=== PATIENT | male | born 1955 | race African-American/Black ===

== ENCOUNTER 2022-06-29 13:26 | Outpatient (CLI) | payer MEDICARE, SELFPAY ==
--- NOTE | ~2022-06-29 | MR_ITS ---
EXAMINATION: MR lumbar spine wo con DATE: 06/29/2022 14:14 INDICATION: Lumbago with right-sided sciatica. TECHNIQUE: Magnetic resonance imaging (MRI) of the lumbar spine was performed without intravenous con trast. Sequences included sagittal T2-weighted FSE, sagittal T2-weighted FS FSE, sagittal T1-weighted FSE, and axial T2-weighted FSE. COMPARISON: Lumbar spine radiograph 10/21/2018 FINDINGS: There is 5 degrees levocurvature of lumbar spine. Vertebral body heights are normal. There is mildly decreased disc height at L3-L4 and severely decreased disc height at L4-L5 and L5-S1 with e ndplate remodeling. The distal spinal cord signal intensity is normal. The conus medullaris is at L1- L2. Epidural lipomatosis is noted. The following disc levels are specifically discussed: L1-L2: The disc does not extend beyond the endplate margin. There is severe bilateral facet joint ost eoarthritis. There is mild bilateral neural foraminal stenosis. There is no central canal stenosis. L2-L3: The disc does not extend beyond the endplate margin. There is severe bilateral facet joint ost eoarthritis. There is no neural foraminal stenosis. There is no central canal stenosis. L3-L4: The disc is bulging and has an annular fissure. There is severe bilateral facet joint osteoart hritis. There is moderate bilateral neural foraminal stenosis. There is mild central canal stenosis. L4-L5: The disc is bulging with superimposed central extrusion. There is severe bilateral facet joint osteoarthritis. There is moderate bilateral neural foraminal stenosis. There is mild central canal s tenosis. L5-S1: This is bulging and has an annular fissure. There is severe bilateral facet joint osteoarthrit is. There is moderate bilateral neural foraminal stenosis. There is mild central canal stenosis. IMPRESSION: 1. Severe lumbar spondylosis. Reviewed, dictated and finalized at location A.
== END 2022-06-29 13:27 | disposition home or self-care (01) ==
PROVIDERS: PCP Emergency Medicine; Visit Provider Emergency Medicine
DX: M54.41 Lumbago with sciatica, right side (principal); M47.896 Other spondylosis, lumbar region
CPT/HCPCS: 72148

== ENCOUNTER 2024-04-03 13:46 | Inpatient (IN) | payer MEDICARE, MEDICAID, SELFPAY ==
[2024-04-03] VITALS (7 sets, daily range): BP systolic 71–117; BP diastolic 44–58; PULSE 79–118; RESP 16–20; TEMP 36–36.8; O2SAT 98–100; BMI 24.6
--- NOTE | ~2024-04-03 | CT_ITS ---
CT chest abdomen pelvis wo con Ordering provider: Lola Mcnair APRN History: . nausea, vomiting, diarrhea, acute renal failure . Comparison: None. Technique: CT abdomen without IV and without oral contrast. Radiation reduction technique utilized. D LP is 360.69 mGy. Findings: VISUALIZED LOWER CHEST: Normal. UPPER ABDOMINAL ORGANS: Liver: Normal. Gallbladder: Normal. Spleen: Normal. Stomach/duodenum: Normal. Pancreas: Normal. Adrenals: Calcified nodule in the left adrenal is noted. Slightly prominent right adrenal. Kidneys: Small cyst in the right kidney upper pole. VISUALIZED BOWEL AND MESENTERY: No evidence of diverticulitis. No evidence of appendicitis. The bowel is otherwise normal. No free air or free fluid. No mesenteric lymphadenopathy. RETROPERITONEUM: Mild atheromatous disease of the abdominal aorta. No retroperitoneal lymphadenopathy . MUSCULOSKELETAL: The superficial soft tissues are normal. Age appropriate degenerative changes of the spine. Left sacroiliitis with fusion IMPRESSION: No evidence of appendicitis, diverticulitis or intestinal obstruction. No renal stones. Slightly prominent right adrenal gland with possible calcified adenoma in the left side. Reviewed, dictated and finalized at location A. IMPRESSION: No evidence of appendicitis, diverticulitis or intestinal obstruction. No renal stones. Slightly prominent right adrenal gland with possible calcified adenoma in the l eft side.
--- NOTE | ~2024-04-03 | XR_ITS ---
EXAMINATION: XR chest 2V DATE: 04/03/2024 14:15 INDICATION: Weakness. Shortness of breath. TECHNIQUE: Frontal and lateral views of the chest were obtained on 3 radiographs. COMPARISON: None. FINDINGS: There are airspace opacities in right upper lobe. No pleural effusion or pneumothorax. The heart size is normal. IMPRESSION: 1. Airspace opacities in right upper lobe, consistent with pneumonia. Reviewed, dictated and finalized at location A.
--- NOTE | ~2024-04-03 | US_ITS ---
EXAMINATION: US renal BI DATE: 04/05/2024 14:29 INDICATION: Acute kidney injury. TECHNIQUE: Multiple ultrasound grayscale images of the kidneys were obtained. COMPARISON: CT 04/03/2024 FINDINGS: The right kidney measures 9.7 x 5.3 x 5.6 cm. The left kidney measures 9.5 x 5.8 x 5.1 cm. The kidney s demonstrate normal parenchymal echogenicity. There is a 1.7 cm cyst in right kidney. There is no hy dronephrosis. The bladder is normal. IMPRESSION: 1. Normal kidney sizes. No hydronephrosis. Reviewed, dictated and finalized at location E.
--- NOTE | 2024-04-03 13:51 | ECG_ITS ---
Test Date: 2024-04-03 14:26:10 Measurements Intervals [place] Rate: 93 P: 87 MN: 109 QRS: 17 QRSD: 105 T: 96 QT: 393 QTc: 489 Interpretive Statements SINUS RHYTHM WITH SHORT MN INTERVAL CONSIDER PREVIOUS INFERIOR INFARCTION ABNORMAL ECG No previous ECG available for comparison Electronically Signed On 04-03-2024 15:58:41 CDT by Harshad Blackburn M.D.
[2024-04-03 14:34] LABS: Basophils Absolute Auto 0.1 K/mm3 (0.0-0.1); Basophils Percent Auto 0.4 % (0.2-1.2); Eosinophils Absolute Auto 0.3 K/mm3 (0-0.3); Eosinophils Percent Auto 1.9 % (0-4.4); Hematocrit 44.1 % (42.0-52.0); Hemoglobin 15.7 g/dL (14.0-18.0); Immature Granulocyte Absolute 0.06 K/mm3 (0.00-0.031); Immature Granulocyte Percent A 0.4 % (0-0.5); Lymphocytes Absolute Auto 3.05 K/mm3 (0.9-3.2); Lymphocytes Percent Auto 22.1 % (18.3-44.2); Mean Corpuscular HGB Conc 35.6 g/dl (32-36); Mean Corpuscular Hemoglobin 32.2 pg (26-34); Mean Corpuscular Volume 90.4 fl (80-100); Mean Platelet Volume 10.3 fl (7.4-10.4); Monocytes Absolute Auto 0.9 K/mm3 (0.1-0.6); Monocytes Percent Auto 6.7 % (2.6-8.5); Neutrophils Absolute Auto 9.5 K/mm3 (1.3-6.7); Neutrophils Percent Auto 68.5 % (45.5-73.1); Platelet Count Result 257 k/mm3 (150-375); Red Blood Count 4.88 M/mm3 (4.6-6.20); White Blood Count 13.8 K/mm3 (4.5-10.0)
[2024-04-03] MEDS: SODIUM CHLORIDE 0.9% IV 1,000 ML 999 ML IV CONT ×2 (14:36→15:59)
--- NOTE | 2024-04-03 14:37 | PC.NURSE ---
notified MD Flores of patient blood pressure being 70s/50s. fluids started per verbal order at this time.
[2024-04-03 14:53] LABS: Alanine Aminotransferase 34 U/L (6-50); Albumin Level 4.9 g/dL (3.5-5.1); Alkaline Phosphatase 136 U/L (38-126); Anion Gap 25 mmol/L (4-12); Aspartate Amino Transferase 24 U/L (17-59); Bilirubin,Total 0.8 mg/dL (0.2-1.3); Blood Urea Nitrogen 90 mg/dL (9-20); Calcium 8.4 mg/dL (8.4-10.2); Carbon Dioxide 10 mmol/L (22-30); Chloride 98 mmol/L (98-107); Glucose 153 mg/dL (65-110); Potassium 3.5 mmol/L (3.4-5.0); Sodium 133 mmol/L (137-145)
[2024-04-03 15:20] LABS: Estimated CRCL calculation 5 ml/min; Estimated Glomerular Filt Rate 4
--- NOTE | 2024-04-03 15:54 | PC.NURSE ---
Notified MD aleman of patient bp being 78/44. patient otherwise asymptomatic. New orders obtained at this time.
--- NOTE | 2024-04-03 16:08 | ED.GENADULT ---
HPI - General Adult General Chief complaint: Weakness Stated complaint: n/v, balance issues Time Seen by Provider: 04/03/24 15:55 History of Present Illness HPI narrative: 69-year-old male presents to the emergency department for evaluation for dehydration lightheaded dizziness. Patient states over the last few days he has had worsening nausea and vomiting. Patient reports decreased p.o. intake. Patient states he has also had decreased urinary output. Denies any prior history of urinary retention. Patient does have history of hypertension and did take his blood pressure medications this morning. Related Data Home Medications Medication Instructions Recorded Confirmed amlodipine 10 mg tablet 10 mg PO DAILY 08/09/22 04/03/24 irbesartan 150 mg tablet 150 mg PO DAILY 08/09/22 04/03/24 omeprazole 20 mg capsule,delayed 20 mg PO DAILY 08/09/22 04/03/24 release pregabalin 75 mg capsule 75 mg PO Q12H 08/09/22 04/03/24 escitalopram oxalate 10 mg tablet 10 mg PO DAILY 04/03/24 04/03/24 Allergies Allergy/AdvReac Type Severity Reaction Status Date / Time No Known Allergies Allergy Verified 08/09/22 09:50 Review of Systems Review of Systems: All systems reviewed & are unremarkable except as noted in HPI and below PMFSH Past Medical History Medical History (Updated 04/03/24 @ 18:41 by Kalyan Sauceda MD) HTN (hypertension) Social History Social History Years smoked: 2 Smoking status: Current every day smoker Tobacco type: cigars Alcohol intake: current Drinks per week: 6 Substance use: never Substance use type: does not use Do You Feel Safe in your Home?: Yes Lack of Transportation: No Lack of Food: Never True Current Housing: I Have Housing Concerned About Future Housing: No Difficulty Paying Gas/Electric Bills: No Difficulty Paying for Meds: No Currently Unemployed: No Education: Decline to Answer Difficulty w/ Childcare or Family Care: Decline to Answer Living arrangements: with family Spiritual care concerns: No Exam Narrative: APPEARANCE: Well appearing, no pain, no distress, well-nourished. HEAD: normocephalic, atraumatic. EYES: PERRLA/EOMI, conjunctivae clear. NOSE: Normal no drainage EARS:TMS clear with good light reflex. THROAT: Pharynx clear, no exudate. NECK: Supple. No adenopathy, no masses. RESPIRATORY: Airway patent, respirations nonlabored. Clear to auscultation bilaterally, no rales, rhonchi, wheezing. CARDIOVASCULAR: Regular rate and rhythm without murmurs rubs or gallops. ABDOMINAL: Soft, nontender, nondistended, normal bowel sounds MUSCULOSKELETAL: Moves all extremities. Strength/ROM intact, No edema, No calf tenderness. NEURO: Alert. Cranial nerves II through XII intact. Good gait. Good coordination SKIN: Warm, dry. Normal Color Course Course Emergency Course: Patient's blood pressure did improve with rehydration. Patient is being admitted for treatment for his WILLIAM. Nephrology was consulted. Patient was admitted to hospitalist Vital Signs Vital signs: Vital Signs Temperature 97.8 F 04/03/24 13:47 Pulse Rate 118 H 04/03/24 13:47 Respiratory Rate 20 04/03/24 13:47 Blood Pressure 71/44 L 04/03/24 13:47 Pulse Oximetry 98 04/03/24 13:47 Temperature 96.8 F L 04/03/24 18:16 Pulse Rate 88 04/03/24 18:16 Respiratory Rate 18 04/03/24 18:16 Blood Pressure 114/50 L 04/03/24 18:16 Pulse Oximetry 100 04/03/24 18:16 Medical Decision Making MDM Narrative Medical decision making narrative: 69-year-old male presenting to the emergency department for evaluation of lightheaded dizziness and decreased p.o. intake. Patient had a soft nontender abdomen. Patient will was hypotensive but did respond to IV rehydration. Patient is afebrile but does have a leukocytosis of 13.8 a stable hemoglobin 15.7. Patient has an acutely elevated creatinine of 14.4 an elevated BUN of 90. On bedside bladder scan patient had no
--- NOTE | 2024-04-03 17:57 | PM.IMHP ---
H&P: HPI History of Present Illness Date/Time: 04/03/24 17:57 Chief Complaint: Weakness, Diarrhea, Dizziness Narrative: 69 y/o M presents here with multiple medical complaints with PMH of HTN, GERD, and sciatica. The patient presents here from home for further evaluation of dehydration, lightheadedness, dizziness, nausea, vomiting, diarrhea, and decreased appetite. Initially started with diarrhea approximately one week ago. Was having around 5+ BMs per day initially and has decreased in number over the last week, has only had one BM today. Stool described brown and liquid. No BRB or dark tarry stools. No constipation preceding diarrhea. Developed nausea, vomiting, and lack of appetite 3 days ago. Retching did not produce emesis. Last solid food intake was today and small amount yesterday, otherwise did not eat for approximately 4 days. Denies abdominal pain, some mild soreness from heaving . Lightheadedness, dizziness, and weakness started 2 days ago. Dizziness would occur when he would walk to the restroom. Denies night sweats, unintentional weight loss, or easy bruising. Denies any hx of WILLIAM or CKD. Last able to urinate on Sat, has since been able to urinate post-fluids. Initial VS at presentation: 97.8? F, HR 118, RR 20, 71/44, and 98% on RA. ED workup showed: WBC 13.8, sodium 133, creatinine 14.4 and GFR 4 (no previous available for comparison), glucose 153, alk-phos 136, total protein 10.0. CXR showed airspace opacities in the right upper lobe consistent with pneumonia. Review of Systems Review of Systems: All systems reviewed & are unremarkable except as noted in HPI and below PMFSH Past Medical History Medical History GERD (gastroesophageal reflux disease) HTN (hypertension) Sciatica Surgical History Surgical History No history of previous surgery Social History Social History Years smoked: 2 Smoking status: Current every day smoker Tobacco type: cigars Alcohol intake: current Drinks per week: 6 Substance use: never Substance use type: does not use Do You Feel Safe in your Home?: Yes Lack of Transportation: No Lack of Food: Never True Current Housing: I Have Housing Concerned About Future Housing: No Difficulty Paying Gas/Electric Bills: No Difficulty Paying for Meds: No Currently Unemployed: No Education: Decline to Answer Difficulty w/ Childcare or Family Care: Decline to Answer Living arrangements: with family Spiritual care concerns: No Meds Home Medications and Allergies Home Medications Medication Instructions Recorded Confirmed Type amlodipine 10 mg tablet 10 mg PO DAILY 08/09/22 04/03/24 History irbesartan 150 mg tablet 150 mg PO DAILY 08/09/22 04/03/24 History omeprazole 20 mg capsule,delayed 20 mg PO DAILY 08/09/22 04/03/24 History release pregabalin 75 mg capsule 75 mg PO Q12H 08/09/22 04/03/24 History escitalopram oxalate 10 mg tablet 10 mg PO DAILY 04/03/24 04/03/24 History Allergies Allergy/AdvReac Type Severity Reaction Status Date / Time No Known Allergies Allergy Verified 08/09/22 09:50 Vital Signs Vital Signs - 24 hr 04/03/24 13:47 04/03/24 17:25 Temperature 97.8 F Pulse Rate 118 H 92 Respiratory Rate 20 16 Blood Pressure 71/44 L 116/58 L Pulse Oximetry 98 Exam Const: General: comfortable and no acute distress Other: , male, nontoxic appearance HENMT: Face/Nose/Sinus: Normal nares present Other: moist to dry mucosa. poor dentition. Eyes: General: appearance normal, both eyes and all related structures Sclera: sclerae normal Pupils: Equal, round and reactive pupils present EOM: EOMs intact bilaterally Resp: Effort & Inspection: normal respiratory effort Auscultation: clear to auscultation bilaterally Cardio:
--- NOTE | 2024-04-03 18:03 | ADMGEN ---
This patient, Willi Valle, was admitted to IMU Room 212-01. Patient/family oriented to hospital policies and general routines including ID bracelet, bed and alarms, visiting hours, pain management, procedures, bathroom and other care routines, personal items, smoking policy, room service/diet, and visiting hours. Information on how to activate the Rapid Response Team has been discussed. Patient/Family are encouraged to report perceived risks to care and to ask questions if they do not understand what they are told or what they should do.
[2024-04-03] MEDS: SODIUM CHLORIDE 0.9% IV 1,000 ML 125 ML IV CONT (18:16)
[2024-04-03] MEDS: AZITHROMYCIN 500 MG/NS 250 ML 500 MG/250 ML BAG 250 MG IVPB (18:17)
[2024-04-03 18:27] LABS: Appearance Urine Cloudy (Clear); Bacteria Urine None Seen /hpf; Bilirubin Urine Negative (Negative); Blood Urine 1+ (Negative); Color Urine Yellow (Yellow); Glucose Urine UA Negative (Negative); Hyaline Casts Urine Present /lpf; Ketones Urine Trace mg/dL (Negative); Leukocyte Esterase Ur Negative LEU/UL (Negative); Nitrate Urine Negative (Negative); Non Pathogenic Casts >20; Protein Urine 2+ mg/dL (Negative); Specific Grav Ur 1.021 (1.001-1.035); Squamous Epithelial Cell Urine Few /hpf (Few); Urobilinogen Urine 0.2 mg/dL (<2.0)
[2024-04-03 18:31] LABS: Add Urine Microscopic? YES
[2024-04-03 19:04] LABS: Total Protein Urine Random 121 mg/dL
[2024-04-03 19:06] LABS: Sodium Urine Random 14 meq/L
[2024-04-03 19:46] LABS: Creatine Kinase 218 U/L (55-170)
[2024-04-04] VITALS (11 sets, daily range): BP systolic 117–145; BP diastolic 58–66; PULSE 78–91; RESP 16–20; TEMP 36.4–36.8; O2SAT 99–100
[2024-04-04 00:13] LABS: Alanine Aminotransferase 26 U/L (6-50); Albumin Level 3.8 g/dL (3.5-5.1); Alkaline Phosphatase 99 U/L (38-126); Anion Gap 16 mmol/L (4-12); Aspartate Amino Transferase 27 U/L (17-59); Bilirubin,Total 0.4 mg/dL (0.2-1.3); Blood Urea Nitrogen 89 mg/dL (9-20); Calcium 7.5 mg/dL (8.4-10.2); Carbon Dioxide 12 mmol/L (22-30); Chloride 105 mmol/L (98-107); Estimated CRCL calculation 5 ml/min; Estimated Glomerular Filt Rate 5; Glucose 111 mg/dL (65-110); Potassium 3.9 mmol/L (3.4-5.0); Sodium 133 mmol/L (137-145)
[2024-04-04 00:28] LABS: Procalcitonin 0.9 ng/mL
[2024-04-04] MEDS: SODIUM CHLORIDE 0.9% IV 1,000 ML 125 ML IV CONT ×2 (03:16→14:26)
[2024-04-04 04:40] LABS: Basophils Percent Auto 0.3 % (0.2-1.2); Eosinophils Absolute Auto 0.3 K/mm3 (0-0.3); Eosinophils Percent Auto 2.7 % (0-4.4); Hematocrit 39.9 % (42.0-52.0); Hemoglobin 13.9 g/dL (14.0-18.0); Immature Granulocyte Absolute 0.07 K/mm3 (0.00-0.031); Immature Granulocyte Percent A 0.5 % (0-0.5); Lymphocytes Absolute Auto 2.37 K/mm3 (0.9-3.2); Lymphocytes Percent Auto 18.6 % (18.3-44.2); Mean Corpuscular HGB Conc 34.8 g/dl (32-36); Mean Corpuscular Hemoglobin 32.1 pg (26-34); Mean Corpuscular Volume 92.1 fl (80-100); Mean Platelet Volume 10.7 fl (7.4-10.4); Monocytes Absolute Auto 0.9 K/mm3 (0.1-0.6); Monocytes Percent Auto 6.8 % (2.6-8.5); Neutrophils Absolute Auto 9.1 K/mm3 (1.3-6.7); Neutrophils Percent Auto 71.1 % (45.5-73.1); Platelet Count Result 199 k/mm3 (150-375); Red Blood Count 4.33 M/mm3 (4.6-6.20); Red Cell Distribution Width 12.8 % (11.5-14.5); White Blood Count 12.8 K/mm3 (4.5-10.0)
[2024-04-04 04:41] LABS: Eosinophil Urine None Seen % (None Seen); Urine Eos QC 2nd Tech Confirmed
[2024-04-04 04:48] LABS: Alanine Aminotransferase 29 U/L (6-50); Albumin Level 4.5 g/dL (3.5-5.1); Alkaline Phosphatase 117 U/L (38-126); Anion Gap 18 mmol/L (4-12); Aspartate Amino Transferase 34 U/L (17-59); Bilirubin,Total 0.5 mg/dL (0.2-1.3); Blood Urea Nitrogen 88 mg/dL (9-20); Calcium 8.1 mg/dL (8.4-10.2); Carbon Dioxide 13 mmol/L (22-30); Chloride 105 mmol/L (98-107); Creatine Kinase 692 U/L (55-170); Estimated CRCL calculation 5 ml/min; Estimated Glomerular Filt Rate 5; Glucose 93 mg/dL (65-110); Magnesium 1.8 mg/dL (1.6-2.3); Phosphorus 7.9 mg/dL (2.5-4.5); Potassium 3.6 mmol/L (3.4-5.0); Sodium 136 mmol/L (137-145)
[2024-04-04 05:19] LABS: Hepatitis B Surface Antigen Negative (Negative)
[2024-04-04 05:37] LABS: Hepatitis B Surface Anti Res Negative
[2024-04-04] MEDS: SODIUM BICARBONATE TAB 650 MG TABLET 1300 MG PO ×2 (09:28→16:54)
--- NOTE | 2024-04-04 11:29 | PC.NURSE ---
Willi Valle was transferred into room 341 from U room 212. Report was taken by phone from FÁTIMA Le prior to transfer.
--- NOTE | 2024-04-04 11:50 | P.CONNP_ITS ---
Assessment and Plan Assessment and plan (1) Acute renal failure (ARF): Qualifiers: Acute renal failure type: unspecified Qualified Code(s): N17.9 - Acute kidney failure, unspecified Code(s): N17.9 - Acute kidney failure, unspecified Status: Acute Assessment and Plan: * no previous baseline creatinine available * suspect mulitfactorial etiology: * prerenal factors (N/V/D + poor oral intake) * hypotension (as noted on presentation to ER) * continues use of antiHTN meds including ARB * infection/early sepsis (pneumonia) * other (?) * evaluation to date: * CT imaging without kidney obstruction * urine electrolytes are prerenal * urine eosinophils negative * CPK slightly elevated (not enough to affect kidney function) -- follow trend * no significant proteinuria * hold BP medications including irbesartan * continue trial of IVF hydration * 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 * follow trend of repeat labs and UOP (2) Sepsis: Qualifiers: Sepsis type: sepsis due to unspecified organism Sepsis acute organ dysfunction status: with acute organ dysfunction Severe sepsis acute organ dysfunction type: acute renal failure Acute renal failure type: unspecified Severe sepsis shock status: with septic shock Qualified Code(s): A41.9 - Sepsis, unspecified organism; R65.21 - Severe sepsis with septic shock; N17.9 - Acute kidney failure, unspecified Code(s): A41.9 - Sepsis, unspecified organism Status: Acute Assessment and Plan: * as noted by tachycarida, leukocytosis, and hypotension on presentation * s/p IVF resuscitation in ER with improvement in BP * no need for vasopressor therapy * presumsed source = pneumonia * follow culture data * on antibiotics * follow trend of hemodynamics (3) Metabolic acidosis: Code(s): E87.20 - Acidosis, unspecified Status: Acute Assessment and Plan: * quite significant on presentation * likely due to WILLIAM/ARF in combination with significant GI symptoms * check lactic acid * initiated on oral sodium bicarbonate to compensate * however, may need to consider IV bicarb gtt if fails to improve * follow CO2 levels (4) Pneumonia: Qualifiers: Laterality: right Lung location: upper lobe of lung Pneumonia type: due to unspecified organism Qualified Code(s): J18.9 - Pneumonia, unspecified organism Code(s): J18.9 - Pneumonia, unspecified organism Status: Acute Assessment and Plan: * as evident by admission imaging * on antibiotics * no evidence of hypoxia * continue supportive therapy (5) Nausea, vomiting, and diarrhea: Code(s): R11.2 - Nausea with vomiting, unspecified; R19.7 - Diarrhea, unspecified Status: Acute Assessment and Plan: * clinically improving prior to admission * stool cultures pending * no intra-abdominal pathology by CT of A/P * IV antiemetics as needed * continue supportive therapy (6) HTN (hypertension): Qualifiers: Hypertension type: primary hypertension Qualified Code(s): I10 - Essential (primary) hypertension Code(s): I10 - Essential (primary) hypertension Status: Acute Assessment and Plan: * BP relatively stable at this time * hypotension noted on presentation * improvement noted s/p IVF resuscitation * holding antihypertensive medciations * follow hemodynamics Case discussed extensively with ALICIA Mcnair yesterday evening. Long extensive discussion (greater than 20 minutes) with the patie
--- NOTE | 2024-04-04 11:50 | PM.CNNEP ---
Assessment and Plan Assessment and plan (1) Acute renal failure (ARF): Qualifiers: Acute renal failure type: unspecified Qualified Code(s): N17.9 - Acute kidney failure, unspecified Code(s): N17.9 - Acute kidney failure, unspecified Status: Acute Assessment and Plan: no previous baseline creatinine available suspect mulitfactorial etiology: prerenal factors (N/V/D + poor oral intake) hypotension (as noted on presentation to ER) continues use of antiHTN meds including ARB infection/early sepsis (pneumonia) other (?) evaluation to date: CT imaging without kidney obstruction urine electrolytes are prerenal urine eosinophils negative CPK slightly elevated (not enough to affect kidney function) -- follow trend no significant proteinuria hold BP medications including irbesartan continue trial of IVF hydration 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 follow trend of repeat labs and UOP (2) Sepsis: Qualifiers: Sepsis type: sepsis due to unspecified organism Sepsis acute organ dysfunction status: with acute organ dysfunction Severe sepsis acute organ dysfunction type: acute renal failure Acute renal failure type: unspecified Severe sepsis shock status: with septic shock Qualified Code(s): A41.9 - Sepsis, unspecified organism; R65.21 - Severe sepsis with septic shock; N17.9 - Acute kidney failure, unspecified Code(s): A41.9 - Sepsis, unspecified organism Status: Acute Assessment and Plan: as noted by tachycarida, leukocytosis, and hypotension on presentation s/p IVF resuscitation in ER with improvement in BP no need for vasopressor therapy presumsed source = pneumonia follow culture data on antibiotics follow trend of hemodynamics (3) Metabolic acidosis: Code(s): E87.20 - Acidosis, unspecified Status: Acute Assessment and Plan: quite significant on presentation likely due to WILLIAM/ARF in combination with significant GI symptoms check lactic acid initiated on oral sodium bicarbonate to compensate however, may need to consider IV bicarb gtt if fails to improve follow CO2 levels (4) Pneumonia: Qualifiers: Laterality: right Lung location: upper lobe of lung Pneumonia type: due to unspecified organism Qualified Code(s): J18.9 - Pneumonia, unspecified organism Code(s): J18.9 - Pneumonia, unspecified organism Status: Acute Assessment and Plan: as evident by admission imaging on antibiotics no evidence of hypoxia continue supportive therapy (5) Nausea, vomiting, and diarrhea: Code(s): R11.2 - Nausea with vomiting, unspecified; R19.7 - Diarrhea, unspecified Status: Acute Assessment and Plan: clinically improving prior to admission stool cultures pending no intra-abdominal pathology by CT of A/P IV antiemetics as needed continue supportive therapy (6) HTN (hypertension): Qualifiers: Hypertension type: primary hypertension Qualified Code(s): I10 - Essential (primary) hypertension Code(s): I10 - Essential (primary) hypertension Status: Acute Assessment and Plan: BP relatively stable at this time hypotension noted on presentation improvement noted s/p IVF resuscitation holding antihypertensive medciations follow hemodynamics Case discussed extensively with ALICIA Mcnair yesterday evening. Long extensive discussion (greater than 20 minutes) with the patient regarding his severe/significant acute kidney injury/ acute renal failure in conjunction with ongoing metabolic acidosis... I voiced my concerns with him that if he fails to improve with conservative therapy or runs into issues / problems with critical electrolyte abnormalities, worsening metabolic acidosis unresponsive to medical therapy, volume overload, or uremia, he may require renal replacement therapy/ dialysis. He appeared to voice understanding to this possib
--- NOTE | 2024-04-04 12:11 | PC.NURSE ---
This patient, Willi Valle, was transferred to [facility] on 04/04/24 at 1115. Personal belongings sent with patient. Report given to Pili SHINE. Appropriate documentation sent with patient.
--- NOTE | 2024-04-04 12:49 | PM.IMPN ---
Progress Note: A&P Assessment and Plan (1) Sepsis: Qualifiers: Sepsis type: sepsis due to unspecified organism Sepsis acute organ dysfunction status: with acute organ dysfunction Severe sepsis acute organ dysfunction type: acute renal failure Acute renal failure type: unspecified Severe sepsis shock status: with septic shock Qualified Code(s): A41.9 - Sepsis, unspecified organism; R65.21 - Severe sepsis with septic shock; N17.9 - Acute kidney failure, unspecified Code(s): A41.9 - Sepsis, unspecified organism Status: Acute (2) Acute renal failure (ARF): Qualifiers: Acute renal failure type: unspecified Qualified Code(s): N17.9 - Acute kidney failure, unspecified Code(s): N17.9 - Acute kidney failure, unspecified Status: Acute (3) Pneumonia: Qualifiers: Laterality: right Lung location: upper lobe of lung Pneumonia type: due to unspecified organism Qualified Code(s): J18.9 - Pneumonia, unspecified organism Code(s): J18.9 - Pneumonia, unspecified organism Status: Acute (4) Diarrhea: Qualifiers: Diarrhea type: unspecified type Qualified Code(s): R19.7 - Diarrhea, unspecified Code(s): R19.7 - Diarrhea, unspecified Status: Acute (5) N&V (nausea and vomiting): Qualifiers: Vomiting type: unspecified Qualified Code(s): R11.2 - Nausea with vomiting, unspecified Code(s): R11.2 - Nausea with vomiting, unspecified Status: Acute (6) HTN (hypertension): Qualifiers: Hypertension type: primary hypertension Qualified Code(s): I10 - Essential (primary) hypertension Code(s): I10 - Essential (primary) hypertension Status: Acute Plan This is a 69-year-old male who presents to the ER for evaluation lightheadedness and dizziness ongoing since past few days has been able to eat for 5 days. Decreased urine output. History of hypertension on irbesartan amlodipine. Patient also reported ongoing diarrhea. On Initial ED evaluation he was hypotensive with blood pressure 71/0 44 with tachycardia. IV fluids were given with improvement. Otherwise was afebrile. Laboratory evaluation revealed significantly elevated creatinine of 14.4 and elevated BUN of 90. Bedside bladder scan in the ER showed no retention of urine. Patient was continued IV fluids. Leukocytosis of 13.8 on admission hemoglobin of 15.7. Chest x-ray showed airspace opacities in right upper lobe consistent with pneumonia. No prior creatinine level available. Met SIRS criteria with pneumonia indicative of sepsis. Started on ceftriaxone and azithromycin. UA negative for UTI. Nephrology consulted for WILLIAM. Good urine output. Continue IV hydration. Stop irbesartan. Diarrhea GI studies in process. Already resolved. CT chest abdomen pelvis without contrast showed no evidence of appendicitis diverticulitis or intestinal obstruction. Slightly prominent right adrenal gland with possible calcified adenoma on the left side. Metabolic acidosis high anion gap likely related to a acute renal failure. On oral bicarbonate. CK level mildly elevated continue IV hydration Diet renal Code status full code DVT prophylaxis heparin subQ will be added. Subjective Date/time seen: 04/04/24 12:49 Interval history: Chart reviewed. Feels good. Good urine output. Denies any cough. Denies shortness of breath. No abdominal pain. Diarrhea has improved. Review of Systems Review of Systems: All systems reviewed & are unremarkable except as noted in HPI and below Exam Narrative: APPEARANCE: Well appearing, no pain, no distress, well-nourished. HEAD: normocephalic, atraumatic. EYES: PERRLA/EOMI, conjunctivae clear. NOSE: Normal no drainage NECK: Supple. No adenopathy, no masses. RESPIRATORY: Airway patent, respirations nonlabored. Clear to auscultation bilaterally, no rales, rhonchi, wheezing. CARDIOVASCULAR: Regular rate and rhythm without mu
[2024-04-04] MEDS: HEPARIN SODIUM 5,000 UNITS/ML VIAL 5000 UNITS SUB-Q ×2 (14:26→21:01)
[2024-04-04 16:56] LABS: Anion Gap 15 mmol/L (4-12); Blood Urea Nitrogen 84 mg/dL (9-20); Calcium 8.2 mg/dL (8.4-10.2); Carbon Dioxide 14 mmol/L (22-30); Chloride 108 mmol/L (98-107); Estimated CRCL calculation 6 ml/min; Estimated Glomerular Filt Rate 6; Glucose 99 mg/dL (65-110); Potassium 3.5 mmol/L (3.4-5.0); Sodium 137 mmol/L (137-145)
[2024-04-04] MEDS: AZITHROMYCIN 500 MG/NS 250 ML 500 MG/250 ML BAG 250 MG IVPB (17:39)
[2024-04-05] MEDS: SODIUM CHLORIDE 0.9% IV 1,000 ML 125 ML IV CONT ×3 (00:30→16:56)
[2024-04-05] MEDS: ACETAMINOPHEN 325 MG TABLET 650 MG PO ×2 (00:35→16:03)
[2024-04-05 05:53] LABS: Alanine Aminotransferase 25 U/L (6-50); Albumin Level 3.9 g/dL (3.5-5.1); Alkaline Phosphatase 94 U/L (38-126); Anion Gap 13 mmol/L (4-12); Aspartate Amino Transferase 27 U/L (17-59); Bilirubin,Total 0.3 mg/dL (0.2-1.3); Blood Urea Nitrogen 78 mg/dL (9-20); Calcium 8.3 mg/dL (8.4-10.2); Carbon Dioxide 16 mmol/L (22-30); Chloride 112 mmol/L (98-107); Estimated CRCL calculation 8 ml/min; Estimated Glomerular Filt Rate 8; Glucose 109 mg/dL (65-110); Magnesium 1.5 mg/dL (1.6-2.3); Potassium 3.5 mmol/L (3.4-5.0); Sodium 141 mmol/L (137-145)
[2024-04-05 06:08] LABS: Basophils Absolute Auto 0.1 K/mm3 (0.0-0.1); Basophils Percent Auto 0.5 % (0.2-1.2); Eosinophils Absolute Auto 0.7 K/mm3 (0-0.3); Eosinophils Percent Auto 7.3 % (0-4.4); Hematocrit 35.9 % (42.0-52.0); Hemoglobin 12.6 g/dL (14.0-18.0); Immature Granulocyte Absolute 0.05 K/mm3 (0.00-0.031); Immature Granulocyte Percent A 0.5 % (0-0.5); Lymphocytes Absolute Auto 2.42 K/mm3 (0.9-3.2); Lymphocytes Percent Auto 24.3 % (18.3-44.2); Mean Corpuscular HGB Conc 35.1 g/dl (32-36); Mean Corpuscular Hemoglobin 32.1 pg (26-34); Mean Corpuscular Volume 91.3 fl (80-100); Mean Platelet Volume 10.8 fl (7.4-10.4); Monocytes Absolute Auto 0.9 K/mm3 (0.1-0.6); Monocytes Percent Auto 9.5 % (2.6-8.5); Neutrophils Absolute Auto 5.8 K/mm3 (1.3-6.7); Neutrophils Percent Auto 57.9 % (45.5-73.1); Platelet Count Result 211 k/mm3 (150-375); Red Blood Count 3.93 M/mm3 (4.6-6.20); Red Cell Distribution Width 12.9 % (11.5-14.5); White Blood Count 9.9 K/mm3 (4.5-10.0)
[2024-04-05 06:19] VITALS: BP 142/67; PULSE 82; RESP 18; TEMP 36.9; O2SAT 100
[2024-04-05] MEDS: HEPARIN SODIUM 5,000 UNITS/ML VIAL 5000 UNITS SUB-Q ×3 (06:21→21:19)
[2024-04-05] MEDS: SODIUM BICARBONATE TAB 650 MG TABLET 1300 MG PO ×3 (08:10→17:00)
--- NOTE | 2024-04-05 11:26 | P.PNNP_ITS ---
Progress Note: A&P Assessment and Plan (1) Acute renal failure (ARF): Qualifiers: Acute renal failure type: unspecified Qualified Code(s): N17.9 - Acute kidney failure, unspecified Code(s): N17.9 - Acute kidney failure, unspecified Status: Acute Assessment and Plan: * slow improvement noted * no previous baseline creatinine available * will request records from PCP tomorrow * suspect multifactorial etiology: * prerenal factors (N/V/D + poor oral intake) * hypotension (as noted on presentation to ER) * continues use of antiHTN meds including ARB * infection/early sepsis (pneumonia) * other (?) * evaluation to date: * CT imaging without kidney obstruction * urine electrolytes are prerenal * urine eosinophils negative * CPK slightly elevated (not enough to affect kidney function) -- follow tr end * no significant proteinuria * hold BP medications including irbesartan * continue trial of IVF hydration * check renal ultrasound * follow trend of repeat labs and UOP (2) Sepsis: Qualifiers: Acute renal failure type: unspecified Sepsis acute organ dysfunction status: with acute organ dysfunction Sepsis type: sepsis due to unspecified organism Severe sepsis acute organ dysfunction type: acute renal failure Severe sepsis shock status: with septic shock Qualified Code(s): A41.9 - Sepsis, unspecified organism; R65.21 - Severe sepsis with septic shock; N17.9 - Acute kidney failure, unspecified Code(s): A41.9 - Sepsis, unspecified organism Status: Acute Assessment and Plan: * as noted by tachycarida, leukocytosis, and hypotension on presentation * s/p IVF resuscitation in ER with improvement in BP * no need for vasopressor therapy * presumsed source = pneumonia * follow culture data * on antibiotics * follow trend of hemodynamics (3) Metabolic acidosis: Code(s): E87.20 - Acidosis, unspecified Status: Acute Assessment and Plan: * quite significant on presentation * likely due to WILLIAM/ARF in combination with significant GI symptoms * initiated on oral sodium bicarbonate to compensate * follow CO2 levels (4) Pneumonia: Qualifiers: Laterality: right Lung location: upper lobe of lung Pneumonia type: due to unspecified organism Qualified Code(s): J18.9 - Pneumonia, unspecified organism Code(s): J18.9 - Pneumonia, unspecified organism Status: Acute Assessment and Plan: * as evident by admission imaging * on antibiotics * no evidence of hypoxia * continue supportive therapy (5) Nausea, vomiting, and diarrhea: Code(s): R11.2 - Nausea with vomiting, unspecified; R19.7 - Diarrhea, unspecified Status: Acute Assessment and Plan: * clinically improving prior to admission * stool cultures pending * no intra-abdominal pathology by CT of A/P * IV antiemetics as needed * continue supportive therapy (6) HTN (hypertension): Qualifiers: Hypertension type: primary hypertension Qualified Code(s): I10 - Essential (primary) hypertension Code(s): I10 - Essential (primary) hypertension Status: Acute Assessment and Plan: * BP relatively stable at this time * hypotension noted on presentation * improvement noted s/p IVF resuscitation * holding antihypertensive medciations * follow hemodynamics Will continue to follow. Subjective Date/time seen: 04/05/24 11:26 Interval history: Follow-up for acute kidney injury/acute
--- NOTE | 2024-04-05 11:26 | PM.PNNEP ---
Progress Note: A&P Assessment and Plan (1) Acute renal failure (ARF): Qualifiers: Acute renal failure type: unspecified Qualified Code(s): N17.9 - Acute kidney failure, unspecified Code(s): N17.9 - Acute kidney failure, unspecified Status: Acute Assessment and Plan: slow improvement noted no previous baseline creatinine available will request records from PCP tomorrow suspect multifactorial etiology: prerenal factors (N/V/D + poor oral intake) hypotension (as noted on presentation to ER) continues use of antiHTN meds including ARB infection/early sepsis (pneumonia) other (?) evaluation to date: CT imaging without kidney obstruction urine electrolytes are prerenal urine eosinophils negative CPK slightly elevated (not enough to affect kidney function) -- follow trend no significant proteinuria hold BP medications including irbesartan continue trial of IVF hydration check renal ultrasound follow trend of repeat labs and UOP (2) Sepsis: Qualifiers: Acute renal failure type: unspecified Sepsis acute organ dysfunction status: with acute organ dysfunction Sepsis type: sepsis due to unspecified organism Severe sepsis acute organ dysfunction type: acute renal failure Severe sepsis shock status: with septic shock Qualified Code(s): A41.9 - Sepsis, unspecified organism; R65.21 - Severe sepsis with septic shock; N17.9 - Acute kidney failure, unspecified Code(s): A41.9 - Sepsis, unspecified organism Status: Acute Assessment and Plan: as noted by tachycarida, leukocytosis, and hypotension on presentation s/p IVF resuscitation in ER with improvement in BP no need for vasopressor therapy presumsed source = pneumonia follow culture data on antibiotics follow trend of hemodynamics (3) Metabolic acidosis: Code(s): E87.20 - Acidosis, unspecified Status: Acute Assessment and Plan: quite significant on presentation likely due to WILLIAM/ARF in combination with significant GI symptoms initiated on oral sodium bicarbonate to compensate follow CO2 levels (4) Pneumonia: Qualifiers: Laterality: right Lung location: upper lobe of lung Pneumonia type: due to unspecified organism Qualified Code(s): J18.9 - Pneumonia, unspecified organism Code(s): J18.9 - Pneumonia, unspecified organism Status: Acute Assessment and Plan: as evident by admission imaging on antibiotics no evidence of hypoxia continue supportive therapy (5) Nausea, vomiting, and diarrhea: Code(s): R11.2 - Nausea with vomiting, unspecified; R19.7 - Diarrhea, unspecified Status: Acute Assessment and Plan: clinically improving prior to admission stool cultures pending no intra-abdominal pathology by CT of A/P IV antiemetics as needed continue supportive therapy (6) HTN (hypertension): Qualifiers: Hypertension type: primary hypertension Qualified Code(s): I10 - Essential (primary) hypertension Code(s): I10 - Essential (primary) hypertension Status: Acute Assessment and Plan: BP relatively stable at this time hypotension noted on presentation improvement noted s/p IVF resuscitation holding antihypertensive medciations follow hemodynamics Will continue to follow. Subjective Date/time seen: 04/05/24 11:26 Interval history: Follow-up for acute kidney injury/acute renal failure. Slow improvement in renal function and metabolic acidosis by trend of labs in association with good urine output as well; no apparent distress voiced at the time of my visit; no other issues/events overnight or earlier this morning. Exam Narrative: General: elderly male in NAD Heart: normal S1 and S2; no rub Lungs: clear to auscultation Abdomen: soft, nontender, nondistended, positive bowel sounds Extremities: no cyanosis or clubbing; no edema Ski
--- NOTE | 2024-04-05 12:55 | PM.IMPN ---
Progress Note: A&P Assessment and Plan (1) Sepsis: Qualifiers: Sepsis type: sepsis due to unspecified organism Sepsis acute organ dysfunction status: with acute organ dysfunction Severe sepsis acute organ dysfunction type: acute renal failure Acute renal failure type: unspecified Severe sepsis shock status: with septic shock Qualified Code(s): A41.9 - Sepsis, unspecified organism; R65.21 - Severe sepsis with septic shock; N17.9 - Acute kidney failure, unspecified Code(s): A41.9 - Sepsis, unspecified organism Status: Acute (2) Acute renal failure (ARF): Qualifiers: Acute renal failure type: unspecified Qualified Code(s): N17.9 - Acute kidney failure, unspecified Code(s): N17.9 - Acute kidney failure, unspecified Status: Acute (3) Pneumonia: Qualifiers: Laterality: right Lung location: upper lobe of lung Pneumonia type: due to unspecified organism Qualified Code(s): J18.9 - Pneumonia, unspecified organism Code(s): J18.9 - Pneumonia, unspecified organism Status: Acute (4) Diarrhea: Qualifiers: Diarrhea type: unspecified type Qualified Code(s): R19.7 - Diarrhea, unspecified Code(s): R19.7 - Diarrhea, unspecified Status: Acute (5) N&V (nausea and vomiting): Qualifiers: Vomiting type: unspecified Qualified Code(s): R11.2 - Nausea with vomiting, unspecified Code(s): R11.2 - Nausea with vomiting, unspecified Status: Acute (6) HTN (hypertension): Qualifiers: Hypertension type: primary hypertension Qualified Code(s): I10 - Essential (primary) hypertension Code(s): I10 - Essential (primary) hypertension Status: Acute Plan This is a 69-year-old male who presents to the ER for evaluation lightheadedness and dizziness ongoing since past few days has been able to eat for 5 days. Decreased urine output. History of hypertension on irbesartan amlodipine. Patient also reported ongoing diarrhea. On Initial ED evaluation he was hypotensive with blood pressure 71/0 44 with tachycardia. IV fluids were given with improvement. Otherwise was afebrile. Laboratory evaluation revealed significantly elevated creatinine of 14.4 and elevated BUN of 90. Bedside bladder scan in the ER showed no retention of urine. Patient was continued IV fluids. Leukocytosis of 13.8 on admission hemoglobin of 15.7. Chest x-ray showed airspace opacities in right upper lobe consistent with pneumonia. No prior creatinine level available. Met SIRS criteria with pneumonia indicative of sepsis. Started on ceftriaxone and azithromycin. UA negative for UTI. Nephrology consulted for WILLIAM. Good urine output. Continue IV hydration. Stop irbesartan. Diarrhea GI studies in process. Already resolved. CT chest abdomen pelvis without contrast showed no evidence of appendicitis diverticulitis or intestinal obstruction. Slightly prominent right adrenal gland with possible calcified adenoma on the left side. Metabolic acidosis high anion gap likely related to a acute renal failure. On oral bicarbonate. CK level mildly elevated continue IV hydration. Renal function continues to improve Diet renal Code status full code DVT prophylaxis heparin subQ will be added. Subjective Date/time seen: 04/05/24 12:55 Interval history: No overnight events. Good urine output. Feeling well. No cough. Review of Systems Review of Systems: All systems reviewed & are unremarkable except as noted in HPI and below Exam Narrative: APPEARANCE: Well appearing, no pain, no distress, well-nourished. HEAD: normocephalic, atraumatic. EYES: PERRLA/EOMI, conjunctivae clear. NOSE: Normal no drainage NECK: Supple. No adenopathy, no masses. RESPIRATORY: Airway patent, respirations nonlabored. Clear to auscultation bilaterally, no rales, rhonchi, wheezing. CARDIOVASCULAR: Regular rate and rhythm without murmurs rubs or gallops. ABDOMINAL: S
[2024-04-05 14:33] VITALS: BP 147/72; PULSE 85; RESP 18; TEMP 37; O2SAT 98
[2024-04-05] MEDS: AZITHROMYCIN 500 MG/NS 250 ML 500 MG/250 ML BAG 250 MG IVPB (16:57)
[2024-04-05 19:48] LABS: Albumin Level 3.9 g/dL (3.5-5.1); Anion Gap 13 mmol/L (4-12); Blood Urea Nitrogen 80 mg/dL (9-20); Calcium 8.4 mg/dL (8.4-10.2); Carbon Dioxide 15 mmol/L (22-30); Chloride 113 mmol/L (98-107); Estimated CRCL calculation 8 ml/min; Estimated Glomerular Filt Rate 8; Glucose 105 mg/dL (65-110); Phosphorus 5.5 mg/dL (2.5-4.5); Potassium 3.6 mmol/L (3.4-5.0); Sodium 141 mmol/L (137-145)
[2024-04-05 20:42] VITALS: BP 138/72; PULSE 82; RESP 18; TEMP 36.6; O2SAT 100
[2024-04-05 21:30] LABS: Anion Gap 12 mmol/L (4-12); Blood Urea Nitrogen 70 mg/dL (9-20); Calcium 8.3 mg/dL (8.4-10.2); Carbon Dioxide 19 mmol/L (22-30); Chloride 113 mmol/L (98-107); Estimated CRCL calculation 12 ml/min; Estimated Glomerular Filt Rate 12; Glucose 123 mg/dL (65-110); Potassium 3.6 mmol/L (3.4-5.0); Sodium 144 mmol/L (137-145)
[2024-04-06] MEDS: SODIUM CHLORIDE 0.9% IV 1,000 ML 100 ML IV CONT ×3 (01:14→21:01)
[2024-04-06] MEDS: HEPARIN SODIUM 5,000 UNITS/ML VIAL 5000 UNITS SUB-Q ×3 (05:11→21:01)
[2024-04-06 05:17] LABS: Alanine Aminotransferase 28 U/L (6-50); Albumin Level 4.3 g/dL (3.5-5.1); Alkaline Phosphatase 104 U/L (38-126); Anion Gap 13 mmol/L (4-12); Aspartate Amino Transferase 29 U/L (17-59); Bilirubin,Total 0.5 mg/dL (0.2-1.3); Blood Urea Nitrogen 61 mg/dL (9-20); Calcium 8.8 mg/dL (8.4-10.2); Carbon Dioxide 18 mmol/L (22-30); Chloride 112 mmol/L (98-107); Estimated CRCL calculation 14 ml/min; Estimated Glomerular Filt Rate 15; Glucose 99 mg/dL (65-110); Magnesium 1.3 mg/dL (1.6-2.3); Potassium 3.4 mmol/L (3.4-5.0); Sodium 143 mmol/L (137-145)
[2024-04-06] MEDS: ACETAMINOPHEN 325 MG TABLET 650 MG PO (05:31)
[2024-04-06 06:54] LABS: Basophils Absolute Auto 0.1 K/mm3 (0.0-0.1); Basophils Percent Auto 0.7 % (0.2-1.2); Eosinophils Absolute Auto 0.9 K/mm3 (0-0.3); Eosinophils Percent Auto 10.1 % (0-4.4); Hematocrit 37.4 % (42.0-52.0); Hemoglobin 13.2 g/dL (14.0-18.0); Immature Granulocyte Absolute 0.03 K/mm3 (0.00-0.031); Immature Granulocyte Percent A 0.4 % (0-0.5); Lymphocytes Absolute Auto 2.56 K/mm3 (0.9-3.2); Lymphocytes Percent Auto 30.1 % (18.3-44.2); Mean Corpuscular HGB Conc 35.3 g/dl (32-36); Mean Corpuscular Hemoglobin 31.7 pg (26-34); Mean Corpuscular Volume 89.7 fl (80-100); Mean Platelet Volume 10.4 fl (7.4-10.4); Monocytes Absolute Auto 0.7 K/mm3 (0.1-0.6); Monocytes Percent Auto 8.7 % (2.6-8.5); Neutrophils Absolute Auto 4.3 K/mm3 (1.3-6.7); Platelet Count Result 244 k/mm3 (150-375); Red Blood Count 4.17 M/mm3 (4.6-6.20); Red Cell Distribution Width 12.6 % (11.5-14.5); White Blood Count 8.5 K/mm3 (4.5-10.0)
[2024-04-06 07:03] LABS: Creatine Kinase 142 U/L (55-170)
[2024-04-06] MEDS: POTASSIUM CHLORIDE 20 MEQ ER TABLET 40 MEQ PO (08:36)
[2024-04-06] MEDS: SODIUM BICARBONATE TAB 650 MG TABLET 1300 MG PO ×2 (08:37→17:58)
[2024-04-06] MEDS: MAGNESIUM OXIDE 400 MG TABLET PO (08:38)
[2024-04-06] MEDS: MAGNESIUM SULF 1 GM/D5W 100 ML 1 GM/100 ML BAG IVPB (09:48)
--- NOTE | 2024-04-06 10:28 | P.PNNP_ITS ---
Progress Note: A&P Assessment and Plan (1) Acute renal failure (ARF): Qualifiers: Acute renal failure type: unspecified Qualified Code(s): N17.9 - Acute kidney failure, unspecified Code(s): N17.9 - Acute kidney failure, unspecified Status: Acute Assessment and Plan: * slow improvement noted * last creatinine available is 1.57mg/dl in June 2022 ([facility]) * this argues in favor of underlying CKD * suspect multifactorial etiology: * prerenal factors (N/V/D + poor oral intake) * hypotension (as noted on presentation to ER) * continues use of antiHTN meds including ARB * infection/early sepsis (pneumonia) * other (?) * evaluation to date: * CT imaging without kidney obstruction * normal renal ultrasound * urine electrolytes are prerenal * urine eosinophils negative * CPK slightly elevated (not enough to affect kidney function) -- normalized * no significant proteinuria * hold BP medications including irbesartan * continue trial of IVF hydration * follow trend of repeat labs and UOP (2) Stage 3b chronic kidney disease: Code(s): N18.32 - Chronic kidney disease, stage 3b Status: Chronic Assessment and Plan: * creatinine 1.57mg/dl in June 2022 * presumably due to hypertension and age-related change * will proceed with serological evaluation given abnormal baseline renal function (3) Sepsis: Qualifiers: Acute renal failure type: unspecified Sepsis acute organ dysfunction status: with acute organ dysfunction Sepsis type: sepsis due to unspecified organism Severe sepsis acute organ dysfunction type: acute renal failure Severe sepsis shock status: with septic shock Qualified Code(s): A41.9 - Sep sis, unspecified organism; R65.21 - Severe sepsis with septic shock; N17.9 - Acute kidney failure, unspecified Code(s): A41.9 - Sepsis, unspecified organism Status: Acute Assessment and Plan: * as noted by tachycarida, leukocytosis, and hypotension on presentation * s/p IVF resuscitation in ER with improvement in BP * no need for vasopressor therapy * presumsed source = pneumonia * follow culture data * on antibiotics * follow trend of hemodynamics (4) Metabolic acidosis: Code(s): E87.20 - Acidosis, unspecified Status: Acute Assessment and Plan: * quite significant on presentation * likely due to WILLIAM/ARF in combination with significant GI symptoms * initiated on oral sodium bicarbonate to compensate * follow CO2 levels (5) Pneumonia: Qualifiers: Laterality: right Lung location: upper lobe of lung Pneumonia type: due to unspecified organism Qualified Code(s): J18.9 - Pneumonia, unspecified organism Code(s): J18.9 - Pneumonia, unspecified organism Status: Acute Assessment and Plan: * as evident by admission imaging * on antibiotics * no evidence of hypoxia * continue supportive therapy (6) Nausea, vomiting, and diarrhea: Code(s): R11.2 - Nausea with vomiting, unspecified; R19.7 - Diarrhea, unspecified Status: Acute Assessment and Plan: * clinically improving prior to admission * stool cultures pending * no intra-abdominal pathology by CT of A/P * IV antiemetics as needed * continue supportive therapy (7) HTN (hypertension): Qualifiers: Hypertension type: primary hypertension Qualified Code(s): I10 - Essent ial (primary) hypertension Code(s): I10 - Essential (primary) hypertension Status: Acute Assess
--- NOTE | 2024-04-06 10:28 | PM.PNNEP ---
Progress Note: A&P Assessment and Plan (1) Acute renal failure (ARF): Qualifiers: Acute renal failure type: unspecified Qualified Code(s): N17.9 - Acute kidney failure, unspecified Code(s): N17.9 - Acute kidney failure, unspecified Status: Acute Assessment and Plan: slow improvement noted last creatinine available is 1.57mg/dl in June 2022 ([facility]) this argues in favor of underlying CKD suspect multifactorial etiology: prerenal factors (N/V/D + poor oral intake) hypotension (as noted on presentation to ER) continues use of antiHTN meds including ARB infection/early sepsis (pneumonia) other (?) evaluation to date: CT imaging without kidney obstruction normal renal ultrasound urine electrolytes are prerenal urine eosinophils negative CPK slightly elevated (not enough to affect kidney function) -- normalized no significant proteinuria hold BP medications including irbesartan continue trial of IVF hydration follow trend of repeat labs and UOP (2) Stage 3b chronic kidney disease: Code(s): N18.32 - Chronic kidney disease, stage 3b Status: Chronic Assessment and Plan: creatinine 1.57mg/dl in June 2022 presumably due to hypertension and age-related change will proceed with serological evaluation given abnormal baseline renal function (3) Sepsis: Qualifiers: Acute renal failure type: unspecified Sepsis acute organ dysfunction status: with acute organ dysfunction Sepsis type: sepsis due to unspecified organism Severe sepsis acute organ dysfunction type: acute renal failure Severe sepsis shock status: with septic shock Qualified Code(s): A41.9 - Sepsis, unspecified organism; R65.21 - Severe sepsis with septic shock; N17.9 - Acute kidney failure, unspecified Code(s): A41.9 - Sepsis, unspecified organism Status: Acute Assessment and Plan: as noted by tachycarida, leukocytosis, and hypotension on presentation s/p IVF resuscitation in ER with improvement in BP no need for vasopressor therapy presumsed source = pneumonia follow culture data on antibiotics follow trend of hemodynamics (4) Metabolic acidosis: Code(s): E87.20 - Acidosis, unspecified Status: Acute Assessment and Plan: quite significant on presentation likely due to WILLIAM/ARF in combination with significant GI symptoms initiated on oral sodium bicarbonate to compensate follow CO2 levels (5) Pneumonia: Qualifiers: Laterality: right Lung location: upper lobe of lung Pneumonia type: due to unspecified organism Qualified Code(s): J18.9 - Pneumonia, unspecified organism Code(s): J18.9 - Pneumonia, unspecified organism Status: Acute Assessment and Plan: as evident by admission imaging on antibiotics no evidence of hypoxia continue supportive therapy (6) Nausea, vomiting, and diarrhea: Code(s): R11.2 - Nausea with vomiting, unspecified; R19.7 - Diarrhea, unspecified Status: Acute Assessment and Plan: clinically improving prior to admission stool cultures pending no intra-abdominal pathology by CT of A/P IV antiemetics as needed continue supportive therapy (7) HTN (hypertension): Qualifiers: Hypertension type: primary hypertension Qualified Code(s): I10 - Essential (primary) hypertension Code(s): I10 - Essential (primary) hypertension Status: Acute Assessment and Plan: BP relatively stable at this time hypotension noted on presentation improvement noted s/p IVF resuscitation holding antihypertensive medciations follow hemodynamics Will continue to follow. Subjective Date/time seen: 04/06/24 10:28 Interval history: Follow-up for acute kidney injury/acute renal failure. Kidney function/creatinine continues to improve (albeit slowly) since hospitalization/admission; no apparent distress noted;
[2024-04-06 10:33] LABS: Creatinine Urine 431.4 mg/dL; Ur Ttl Prot Creatinine Ratio 0.28 mg/mg (0-0.20)
[2024-04-06 13:17] LABS: Hepatitis B Core Ab Total REACTIVE (NON-REACTIVE)
--- NOTE | 2024-04-06 13:41 | PM.IMPN ---
Progress Note: A&P Assessment and Plan (1) Sepsis: Qualifiers: Sepsis type: sepsis due to unspecified organism Sepsis acute organ dysfunction status: with acute organ dysfunction Severe sepsis acute organ dysfunction type: acute renal failure Acute renal failure type: unspecified Severe sepsis shock status: with septic shock Qualified Code(s): A41.9 - Sepsis, unspecified organism; R65.21 - Severe sepsis with septic shock; N17.9 - Acute kidney failure, unspecified Code(s): A41.9 - Sepsis, unspecified organism Status: Acute (2) Acute renal failure (ARF): Qualifiers: Acute renal failure type: unspecified Qualified Code(s): N17.9 - Acute kidney failure, unspecified Code(s): N17.9 - Acute kidney failure, unspecified Status: Acute (3) Pneumonia: Qualifiers: Laterality: right Lung location: upper lobe of lung Pneumonia type: due to unspecified organism Qualified Code(s): J18.9 - Pneumonia, unspecified organism Code(s): J18.9 - Pneumonia, unspecified organism Status: Acute (4) Diarrhea: Qualifiers: Diarrhea type: unspecified type Qualified Code(s): R19.7 - Diarrhea, unspecified Code(s): R19.7 - Diarrhea, unspecified Status: Acute (5) N&V (nausea and vomiting): Qualifiers: Vomiting type: unspecified Qualified Code(s): R11.2 - Nausea with vomiting, unspecified Code(s): R11.2 - Nausea with vomiting, unspecified Status: Acute (6) HTN (hypertension): Qualifiers: Hypertension type: primary hypertension Qualified Code(s): I10 - Essential (primary) hypertension Code(s): I10 - Essential (primary) hypertension Status: Acute Plan This is a 69-year-old male who presents to the ER for evaluation lightheadedness and dizziness ongoing since past few days has been able to eat for 5 days. Decreased urine output. History of hypertension on irbesartan amlodipine. Patient also reported ongoing diarrhea. On Initial ED evaluation he was hypotensive with blood pressure 71/0 44 with tachycardia. IV fluids were given with improvement. Otherwise was afebrile. Laboratory evaluation revealed significantly elevated creatinine of 14.4 and elevated BUN of 90. Bedside bladder scan in the ER showed no retention of urine. Patient was continued IV fluids. Leukocytosis of 13.8 on admission hemoglobin of 15.7. Chest x-ray showed airspace opacities in right upper lobe consistent with pneumonia. No prior creatinine level available. Met SIRS criteria with pneumonia indicative of sepsis. Started on ceftriaxone and azithromycin. Will switch to oral antibiotics UA negative for UTI. Nephrology consulted for WILLIAM. Good urine output. Continue IV hydration. Stop irbesartan. Baseline creatinine from was 7 from June 2022 Diarrhea GI studies in process. Already resolved. CT chest abdomen pelvis without contrast showed no evidence of appendicitis diverticulitis or intestinal obstruction. Slightly prominent right adrenal gland with possible calcified adenoma on the left side. Metabolic acidosis high anion gap likely related to a acute renal failure. On oral bicarbonate. CK level mildly elevated continue IV hydration. Renal function continues to improve Diet renal Code status full code DVT prophylaxis heparin subQ will be added. Subjective Date/time seen: 04/06/24 13:41 Interval history: No New complaints no fever chills no cough or shortness of breath. Review of Systems Review of Systems: All systems reviewed & are unremarkable except as noted in HPI and below Exam Narrative: APPEARANCE: Well appearing, no pain, no distress, well-nourished. HEAD: normocephalic, atraumatic. EYES: PERRLA/EOMI, conjunctivae clear. NOSE: Normal no drainage NECK: Supple. No adenopathy, no masses. RESPIRATORY: Airway patent, respirations nonlabored. Clear to auscultation bilaterally, no rales, rhonchi, wheezing. CAR
[2024-04-06 14:42] VITALS: BP 143/85; PULSE 71; RESP 16; TEMP 36.5; O2SAT 100
[2024-04-06] MEDS: CEFDINIR 300 MG CAPSULE PO (15:33)
[2024-04-06 20:49] VITALS: BP 156/77; PULSE 81; RESP 20; TEMP 36.9; O2SAT 100
[2024-04-07] MEDS: METOCLOPRAMIDE HCL INJ 10 MG/2 ML VIAL 5 MG IV PUSH (00:08)
[2024-04-07] MEDS: SODIUM CHLORIDE 0.9% IV 1,000 ML 100 ML IV CONT (05:32)
[2024-04-07] MEDS: HEPARIN SODIUM 5,000 UNITS/ML VIAL 5000 UNITS SUB-Q (05:32)
[2024-04-07 05:58] LABS: Hematocrit 35.1 % (42.0-52.0); Hemoglobin 12.3 g/dL (14.0-18.0); Mean Corpuscular Hemoglobin 31.6 pg (26-34); Mean Corpuscular Volume 90.2 fl (80-100); Mean Platelet Volume 10.3 fl (7.4-10.4); Platelet Count Result 250 k/mm3 (150-375); Red Blood Count 3.89 M/mm3 (4.6-6.20); Red Cell Distribution Width 12.6 % (11.5-14.5); White Blood Count 7.7 K/mm3 (4.5-10.0)
[2024-04-07 06:26] LABS: Alanine Aminotransferase 29 U/L (6-50); Albumin Level 4.1 g/dL (3.5-5.1); Alkaline Phosphatase 95 U/L (38-126); Anion Gap 10 mmol/L (4-12); Aspartate Amino Transferase 30 U/L (17-59); Bilirubin,Total 0.6 mg/dL (0.2-1.3); Blood Urea Nitrogen 44 mg/dL (9-20); Calcium 8.8 mg/dL (8.4-10.2); Carbon Dioxide 25 mmol/L (22-30); Chloride 109 mmol/L (98-107); Estimated CRCL calculation 21 ml/min; Estimated Glomerular Filt Rate 24; Glucose 97 mg/dL (65-110); Magnesium 1.2 mg/dL (1.6-2.3); Potassium 3.4 mmol/L (3.4-5.0); Sodium 144 mmol/L (137-145)
[2024-04-07 06:39] LABS: Complement C3 158 mg/dL (88-165)
[2024-04-07] MEDS: MAGNESIUM SULF 1 GM/D5W 100 ML 1 GM/100 ML BAG IVPB (09:18)
[2024-04-07] MEDS: SODIUM BICARBONATE TAB 650 MG TABLET 1300 MG PO (09:19)
[2024-04-07] MEDS: AZITHROMYCIN 250 MG TABLET 500 MG PO (09:19)
[2024-04-07] MEDS: POTASSIUM CHLORIDE 20 MEQ ER TABLET 40 MEQ PO (09:19)
[2024-04-07] MEDS: CEFDINIR 300 MG CAPSULE PO (09:20)
[2024-04-07] MEDS: ACETAMINOPHEN 325 MG TABLET 650 MG PO (09:23)
--- NOTE | 2024-04-07 10:32 | ECG_ITS ---
Test Date: 2024-04-07 10:41:11 Measurements Intervals [place] Rate: 73 P: 72 SC: 126 QRS: 27 QRSD: 98 T: 67 QT: 423 QTc: 468 Interpretive Statements SINUS RHYTHM WITH OCCASIONAL ECTOPIC PREMATURE COMPLEXES INFERIOR MYOCARDIAL INFARCTION , PROBABLY OLD BORDERLINE T WAVE ABNORMALITY- HIGH LATERAL LEADS BASELINE ARTIFACT- I, II, III, AVR, AVL, AVF ABNORMAL ECG Compared to ECG 04/03/2024 14:26:10 NO SIGNIFICANT CHANGE Electronically Signed On 04-07-2024 11:40:48 CDT by Denis Carcamo D.O.
--- NOTE | 2024-04-07 10:35 | PM.PNNEP ---
Progress Note: A&P Assessment and Plan (1) Acute renal failure (ARF): Qualifiers: Acute renal failure type: unspecified Qualified Code(s): N17.9 - Acute kidney failure, unspecified Code(s): N17.9 - Acute kidney failure, unspecified Status: Acute Assessment and Plan: slow improvement noted last creatinine available is 1.57mg/dl in June 2022 ([facility]) this argues in favor of underlying CKD suspect multifactorial etiology: prerenal factors (N/V/D + poor oral intake) hypotension (as noted on presentation to ER) continues use of antiHTN meds including ARB infection/early sepsis (pneumonia) other (?) evaluation to date: CT imaging without kidney obstruction normal renal ultrasound urine electrolytes are prerenal urine eosinophils negative CPK slightly elevated (not enough to affect kidney function) -- normalized no significant proteinuria hold BP medications including irbesartan continue trial of IVF hydration follow trend of repeat labs and UOP (2) Stage 3b chronic kidney disease: Code(s): N18.32 - Chronic kidney disease, stage 3b Status: Chronic Assessment and Plan: creatinine 1.57mg/dl in June 2022 presumably due to hypertension and age-related change will proceed with serological evaluation given abnormal baseline renal function (3) Sepsis: Qualifiers: Acute renal failure type: unspecified Sepsis acute organ dysfunction status: with acute organ dysfunction Sepsis type: sepsis due to unspecified organism Severe sepsis acute organ dysfunction type: acute renal failure Severe sepsis shock status: with septic shock Qualified Code(s): A41.9 - Sepsis, unspecified organism; R65.21 - Severe sepsis with septic shock; N17.9 - Acute kidney failure, unspecified Code(s): A41.9 - Sepsis, unspecified organism Status: Acute Assessment and Plan: as noted by tachycarida, leukocytosis, and hypotension on presentation s/p IVF resuscitation in ER with improvement in BP no need for vasopressor therapy presumsed source = pneumonia follow culture data on antibiotics follow trend of hemodynamics (4) Metabolic acidosis: Code(s): E87.20 - Acidosis, unspecified Status: Acute Assessment and Plan: quite significant on presentation likely due to WILLIAM/ARF in combination with significant GI symptoms initiated on oral sodium bicarbonate to compensate follow CO2 levels (5) Pneumonia: Qualifiers: Laterality: right Lung location: upper lobe of lung Pneumonia type: due to unspecified organism Qualified Code(s): J18.9 - Pneumonia, unspecified organism Code(s): J18.9 - Pneumonia, unspecified organism Status: Acute Assessment and Plan: as evident by admission imaging on antibiotics no evidence of hypoxia continue supportive therapy (6) Nausea, vomiting, and diarrhea: Code(s): R11.2 - Nausea with vomiting, unspecified; R19.7 - Diarrhea, unspecified Status: Acute Assessment and Plan: clinically improving prior to admission stool cultures pending no intra-abdominal pathology by CT of A/P IV antiemetics as needed continue supportive therapy (7) HTN (hypertension): Qualifiers: Hypertension type: primary hypertension Qualified Code(s): I10 - Essential (primary) hypertension Code(s): I10 - Essential (primary) hypertension Status: Acute Assessment and Plan: BP relatively stable at this time hypotension noted on presentation improvement noted s/p IVF resuscitation holding antihypertensive medciations follow hemodynamics Not opposed to discharge from renal perspective -- will need repeat labs in a week to ensure improvement in renal function. Will continue to follow. Subjective Date/time seen: 04/07/24 10:35 Interval history: Follow-up for acute kidney injury/acute renal failure.
--- NOTE | 2024-04-07 13:31 | PM.DS ---
DS: Admitting Diagnosis Discharge Date 04/07/2024 Admitting Diagnosis Renal failure DS: Discharge Diagnosis Discharge Diagnosis (1) Sepsis: Qualifiers: Sepsis type: sepsis due to unspecified organism Sepsis acute organ dysfunction status: with acute organ dysfunction Severe sepsis acute organ dysfunction type: acute renal failure Acute renal failure type: unspecified Severe sepsis shock status: with septic shock Qualified Code(s): A41.9 - Sepsis, unspecified organism; R65.21 - Severe sepsis with septic shock; N17.9 - Acute kidney failure, unspecified Code(s): A41.9 - Sepsis, unspecified organism Status: Acute (2) Acute renal failure (ARF): Qualifiers: Acute renal failure type: unspecified Qualified Code(s): N17.9 - Acute kidney failure, unspecified Code(s): N17.9 - Acute kidney failure, unspecified Status: Acute (3) Pneumonia: Qualifiers: Laterality: right Lung location: upper lobe of lung Pneumonia type: due to unspecified organism Qualified Code(s): J18.9 - Pneumonia, unspecified organism Code(s): J18.9 - Pneumonia, unspecified organism Status: Acute (4) Diarrhea: Qualifiers: Diarrhea type: unspecified type Qualified Code(s): R19.7 - Diarrhea, unspecified Code(s): R19.7 - Diarrhea, unspecified Status: Acute (5) N&V (nausea and vomiting): Qualifiers: Vomiting type: unspecified Qualified Code(s): R11.2 - Nausea with vomiting, unspecified Code(s): R11.2 - Nausea with vomiting, unspecified Status: Acute (6) HTN (hypertension): Qualifiers: Hypertension type: primary hypertension Qualified Code(s): I10 - Essential (primary) hypertension Code(s): I10 - Essential (primary) hypertension Status: Acute DS: Summary Hospital Course Hospital Course: This is a 69-year-old male who presents to the ER for evaluation lightheadedness and dizziness ongoing since past few days has been able to eat for 5 days. Decreased urine output. History of hypertension on irbesartan amlodipine. Patient also reported ongoing diarrhea. On Initial ED evaluation he was hypotensive with blood pressure 71/44 with tachycardia. IV fluids were given with improvement. Otherwise was afebrile. Laboratory evaluation revealed significantly elevated creatinine of 14.4 and elevated BUN of 90. Bedside bladder scan in the ER showed no retention of urine. Patient was continued IV fluids. Leukocytosis of 13.8 on admission hemoglobin of 15.7. Chest x-ray showed airspace opacities in right upper lobe consistent with pneumonia. Baseline creatinine from June 2020 was 1.57. He Met SIRS criteria with pneumonia indicative of sepsis. Started on ceftriaxone and azithromycin. Switched to oral antibiotics at discharge. UA negative for UTI. Nephrology consulted for WILLIAM. Good urine output. Continue IV hydration. Stop irbesartan. Creatinine continued to improve and was 3.1 by the time of discharge. The all related to dehydration. He will need repeat labs in a week and follow-up with PCP. Diarrhea GI studies in process. Already resolved. CT chest abdomen pelvis without contrast showed no evidence of appendicitis diverticulitis or intestinal obstruction. Slightly prominent right adrenal gland with possible calcified adenoma on the left side. Metabolic acidosis high anion gap likely related to a acute renal failure. On oral bicarbonate. CK level mildly elevated continue IV hydration. Renal function continues to improve Hypomagnesemia will place on magnesium supplement at discharge. Recheck Mag and BMP in 1 week Diet renal Code status full code DVT prophylaxis heparin subQ delete Time Spent with Patient Time attestation: Total time spent providing and/or coordinating discharge services: 30 minutes Exam Narrative: APPEARANCE: Well appearing, no pain, no distress, well-nourished. HEAD: normocephalic, atraum
[2024-04-07 14:03] LABS: Creatinine, Random Urine 54 mg/dL (20-320); Total Protein/Creatinine Ratio 1167 mg/g creat (25-148)
[2024-04-08 10:18] LABS: Protein, Total 7.5 g/dL (6.1-8.1)
[2024-04-08 15:30] LABS: Albumin 3.2 g/dL (3.8-4.8); Alpha 1 Globulin 0.4 g/dL (0.2-0.3); Alpha 2 Globulin 1.1 g/dL (0.5-0.9); Beta 1 Globulin 0.5 g/dL (0.4-0.6); Gamma Globulin 1.6 g/dL (0.8-1.7)
[2024-04-10 09:58] LABS: Anti Glomerular Basement Memb <1.0 AI
[2024-04-10 12:28] LABS: ANCA Screen NEGATIVE (NEGATIVE)
[2024-04-10 12:42] LABS: Kappa\\Lambda Light Chains 1.39 (0.26-1.65)
== END 2024-04-07 15:29 | disposition home or self-care (01) | DRG 871 ==
LOC: ANHED 16:38 → ANHIMU 17:41 → ANH3MED 04-06 14:39
PROVIDERS: Internal Medicine Nephrology; Student in an Organized Health Care Education/Training Program; Admitting Provider General Practice; Emergency Provider Emergency Medicine; PCP Emergency Medicine; Visit Provider Internal Medicine
DX: A41.9 Sepsis, unspecified organism (principal); J18.9 Pneumonia, unspecified organism; N17.9 Acute kidney failure, unspecified; R65.20 Severe sepsis without septic shock; I12.9 Hypertensive chronic kidney disease with stage 1 through stage 4 chronic kidney disease, or unspecified chronic kidney disease; N18.32 Chronic kidney disease, stage 3b; E86.0 Dehydration; E83.42 Hypomagnesemia; K21.9 Gastro-esophageal reflux disease without esophagitis; F17.290 Nicotine dependence, other tobacco product, uncomplicated
CPT/HCPCS: 36415; 71046; 71250; 74176; 76775; 80048; 80053; 80069; 81001; 81050; 82550; 82570; 83520; 83605; 83735; 83883; 84100; 84145; 84155; 84156; 84165; 84166; 84300; 85025; 85999; 86036; 86038; 86039; 86160; 86225; 86704; 86706; 87040; 87045; 87086; 87340; 87427; 87449; 93005; 96360; 96361; 99285; A9270; G0378; J0456; J0696; J1644; J2765; J3475; J7030

== ENCOUNTER 2024-06-03 07:50 | Outpatient (CLI) | payer MEDICARE, MEDICAID, SELFPAY ==
--- NOTE | 2024-06-03 07:47 | EST_ITS ---
Patient Info Name: Willi Valle Age: 69 years : 1955 Gender: Male Ht: 69 in Wt: 176 lbs BSA: 1.98 m2 HR: 73 bpm BP: 167 / 87 mmHg Heart Rhythm: Sinus Rhythm Exam Date: 06/03/2024 8:07 AM Exam Location: Echo Lab Patient Status: Outpatient Admit Date: 06/03/2024 Staff Ordering Physician: Denis Carcamo DO Attending Provider: Denis Carcamo DO Exercise Technologist: Varsha Marquis CT Exercise Physician: Denis Carcamo DO Exam Type: CA stress test treadmill Study Info Indications R06.09 - Other forms of dyspnea A treadmill exercise stress test was performed. Summary 1. 1. Negative Fabio exercise stress test for ischemic ST changes by ECG criteria. 2. 2. Poor functional capacity, achieving 4 METs of workload. 3. 3. Baseline hypertension with hypertensive response to exercise. 4. 4. Rapid HR response to exercise. 5. 5. Appropriate HR recovery at 1 minute post exercise. 6. 6. No imaging with stress testing. 7. 7. Patient informed of the above results. Protocol: Fabio Stress ECG Details Stage: REST Duration (min): 1 min : 58 sec Speed (mph): 0.0 Grade (%): 0 HR (bpm): 78 SBP (mmHg): 167 DBP (mmHg): 87 METS: --- Stage: REST Duration (min): 9 min : 37 sec Speed (mph): 0.0 Grade (%): 0 HR (bpm): 82 SBP (mmHg): 167 DBP (mmHg): 87 METS: --- Stage: STAGE 1 Duration (min): 1 min : 0 sec Speed (mph): 1.7 Grade (%): 10 HR (bpm): 114 SBP (mmHg): 167 DBP (mmHg): 87 METS: --- Stage: STAGE 1 Duration (min): 2 min : 0 sec Speed (mph): 1.7 Grade (%): 10 HR (bpm): 135 SBP (mmHg): 167 DBP (mmHg): 87 METS: --- Stage: STAGE 1 Duration (min): 2 min : 59 sec Speed (mph): 1.7 Grade (%): 10 HR (bpm): 144 SBP (mmHg): 217 DBP (mmHg): 82 METS: --- Stage: RECOVERY Duration (min): 1 min : 0 sec Speed (mph): 0.0 Grade (%): 0 HR (bpm): 128 SBP (mmHg): 217 DBP (mmHg): 82 METS: --- Stage: RECOVERY Duration (min): 2 min : 0 sec Speed (mph): 0.0 Grade (%): 0 HR (bpm): 101 SBP (mmHg): 217 DBP (mmHg): 82 METS: --- Stage: RECOVERY Duration (min): 3 min : 0 sec Speed (mph): 0.0 Grade (%): 0 HR (bpm): 92 SBP (mmHg): 215 DBP (mmHg): 84 METS: --- Stage: RECOVERY Duration (min): 3 min : 20 sec Speed (mph): 0.0 Grade (%): 0 HR (bpm): 93 SBP (mmHg): 215 DBP (mmHg): 84 METS: --- Rest HR: 82 bpm Peak HR: 146 bpm Rest Sys BP: 167 mmHg Peak Sys BP: 217 mmHg Max Pred HR: 151 bpm % Max Pred HR: 97 % Target HR: 128 bpm Max RPP: 31,682 bpm*mmHg Lai Score: -2 BP Response: Patient exhibited a hypertensive response with stress Termination Reason: Reached target heart rate or workload Cardiac Symptoms: Shortness of breath Max ST Seg Deviation: 0.90 mm Total Time: 2 min : 59 sec Rest Rachel BP: 87 mmHg Peak Rachel BP: 82 mmHg Angina Score: None Total METS: 4.7 Resting ECG Sinus rhythm. Stress ECG No ST changes. Arrhythmias None. Report Signatures
--- NOTE | 2024-06-03 07:48 | ECHO_ITS ---
Patient Info Name: Willi Valle Age: 69 years : 1955 Gender: Male Ht: 69 in Wt: 176 lbs BSA: 1.98 m2 HR: 79 bpm BP: 155 / 84 mmHg Heart Rhythm: Sinus Rhythm Technical Quality: Good Exam Date: 06/03/2024 8:46 AM Exam Location: Echo Lab Patient Status: Outpatient Admit Date: 06/03/2024 Staff Ordering Physician: Denis Carcamo DO Hatchery Manager: Angelica Mccartney RDCS Attending Provider: Denis Carcamo DO Referring Physician: Carlos Alberto PROCTOR; Exam Type: CA echo doppler color flow Study Info Indications R06.09 - Other forms of dyspnea Complete two-dimensional, color flow and Doppler transthoracic echocardiogram is performed. Summary 1. Complete two-dimensional, color flow and Doppler transthoracic echocardiogram is performed. 2. Left ventricular chamber dimension is normal. 3. Left ventricular systolic function is normal, estimated at 65-70%. 4. There is moderate concentric increased left ventricular wall thickness. 5. The left ventricular diastolic function is grade I diastolic dysfunction. 6. E/e' 12 is mildly elevated. 7. There is mild aortic valve sclerosis. 8. No pulmonary hypertension, estimated pulmonary arterial systolic pressure is 21 mmHg. Left Ventricle E/e' 12 is mildly elevated. Left ventricular chamber dimension is normal. Left ventricular systolic function is normal, estimated at 65-70%. There is moderate concentric increased left ventricular wall thickness. The left ventricular diastolic function is grade I diastolic dysfunction. Right Ventricle Right ventricular chamber dimension is normal. Right ventricular systolic function is normal. Left Atria Left atrial chamber dimension is normal. Right Atria Right atrial chamber dimension is normal. Aortic Valve The aortic valve is trileaflet. There is mild aortic valve sclerosis. There is no aortic valve stenosis. There is no aortic valve regurgitation. Pulmonic Valve There is no pulmonic regurgitation. Mitral Valve There is no mitral valve stenosis. There is no mitral valve regurgitation. Tricuspid Valve There is no tricuspid valve regurgitation. No pulmonary hypertension, estimated pulmonary arterial systolic pressure is 21 mmHg. Pericardium/Pleural There is no pericardial effusion. Inferior Vena Cava Normal inferior vena cava with >50% collapse upon inspiration consistent with normal right atrial pressure, 5 mmHg. Aorta The aortic root size at the sinus of Valsalva is normal. Left Ventricular Outflow Tract Name Value Normal LVOT 2D LVOT Diameter 2.0 cm LVOT Doppler LVOT Peak Gradient 3 mmHg LVOT Mean Gradient 2 mmHg LVOT VTI 16 cm LVOT VTI/AV VTI Ratio 0.8 LVOT Stroke Volume 49 ml LVOT CO 3.8 l/min LVOT CI 1.9 l/min/m2 Pulmonic Valve Name Value Normal RVOT Doppler
== END 2024-06-03 07:51 | disposition home or self-care (01) ==
PROVIDERS: PCP Emergency Medicine; Visit Provider Internal Medicine Cardiovascular Disease
DX: R06.09 Other forms of dyspnea (principal); I35.8 Other nonrheumatic aortic valve disorders; I10 Essential (primary) hypertension
CPT/HCPCS: 93017; 93306

== ENCOUNTER 2024-06-16 00:51 | Day surgery (SDC) | payer MEDICARE, MEDICAID, SELFPAY ==
[2024-05-07 12:35] VITALS: BMI 25.0
--- NOTE | 2024-05-19 12:25 | PC.NURSE ---
Pt seen by cardiology Dr. Carcamo-he has ordered stress test and echo done 06/03/2024 EGD/COLON rescheduled from 05/27/24 to 06/16/2024 pending cardiology clearance.
[2024-06-04 15:15] VITALS: BMI 25.0
--- NOTE | 2024-06-15 11:14 | PC.NURSE ---
Pt called not knowing what to do for his prep for colonoscopy tomorrow 06/16/2024. This was mailed and emailed to him, he responded to my email on 06/04/2024 that he had received it. I resent it again today while on the phone with pt and reviewed the instructions with him, he verbalizes understanding of these instructions.
--- NOTE | 2024-06-16 08:47 | WPDANESEPPF ---
Anes - Initial Pre Proc Eval Procedure: Operation Date: 06/16/24 13:00 Proposed Procedures p Esophagogastroduodenoscopy & Colonoscopy - Black Martinez MD Date/Time: 06/16/24 08:47 Surgeon: Black Martinez MD Pre Op Diagnosis: Anemia Patient Data Age: 69 Gender: M Height: 1.75 m Weight: 77 kg Allergies Allergy/AdvReac Type Severity Reaction Status Date / Time No Known Allergies Allergy Verified 06/16/24 11:01 Home Medications Medication Instructions Recorded Confirmed Type amlodipine 10 mg tablet 10 mg PO DAILY 08/09/22 06/16/24 History omeprazole 20 mg capsule,delayed 20 mg PO DAILY 08/09/22 06/16/24 History release pregabalin 75 mg capsule 75 mg PO Q12H 08/09/22 06/16/24 History escitalopram oxalate 10 mg tablet 10 mg PO DAILY 04/03/24 06/16/24 History magnesium oxide 200 mg PO DAILY #30 tabs 04/07/24 06/16/24 Rx irbesartan 150 mg tablet 150 mg PO DAILY 05/07/24 06/16/24 History diphenhydramine 25 1 tablet PO QHS PRN Insomnia 05/15/24 06/16/24 History mg-acetaminophen 500 mg tablet (Tylenol PM Extra Strength) mecobalamin (vitamin B12) 1,000 1,000 mcg PO DAILY 05/15/24 06/16/24 History mcg chewable tablet (B12 Active) Patient hx anesthesia problems: none Family hx anesthesia problems: none Results Review: All pre-operative results and documents have been reviewed as part of the pre-operative evaluation. [facility] Past Medical History Medical History (Updated 06/16/24 @ 08:48 by Duarte Joyce DO) Anemia GERD (gastroesophageal reflux disease) HTN (hypertension) Sciatica Surgical History Surgical History No history of previous surgery Social History Social History (Updated 06/16/24 @ 11:19 by Duarte Joyce DO) Years smoked: 3 Smoking status: Current some day smoker Tobacco type: cigars Alcohol intake: current Drinks per week: 12 Alcohol use details: 2 drink/day Substance use: never Substance use type: does not use Do You Feel Safe in your Home?: Yes Lack of Transportation: No Lack of Food: Never True Current Housing: I Have Housing Concerned About Future Housing: No Difficulty Paying Gas/Electric Bills: No Difficulty Paying for Meds: No Currently Unemployed: No Education: Decline to Answer Difficulty w/ Childcare or Family Care: Decline to Answer Living arrangements: with family Spiritual care concerns: No Anes - Eval Final PreProcedure Day of Procedure 06/16/24 08:47 Patient weight: normal Heart: regular rate and rhythm Lungs: clear to auscultation and normal air movement Airway: Mallampati scale class II and special considerations poor dentition Neurological: alert and oriented Last oral intake: >/= 8 hours ASA classification: III Emergent: no Anesthetic plan: proceed Anesthesia type and monitoring: general GIVS and standard monitoring Results Review: All pre-operative results and documents have been reviewed as part of the pre-operative evaluation. Informed Consent: The patient's anesthetic plan and its attendant risks and benefits were discussed with the patient/family/POA. Questions were solicited and answers provided to the satisfaction of the patient/family/POA.
[2024-06-16 11:02] VITALS: BP 148/93; PULSE 123; RESP 20; TEMP 36.2; O2SAT 99
[2024-06-16] MEDS: LACTATED RINGERS 1,000 ML 150 ML IV CONT (11:19)
--- NOTE | 2024-06-16 11:58 | PM.HPGS ---
History of Present Illness History of Present Illness Consent: Risks, benefits, and alternatives have been discussed and questions answered. Patient agrees to proceed with procedure. Chief complaint: Anemia Narrative: Willi Valle is a 69 year old male here for first egd/colonoscopy, denies gi symptom, no overt gib but with anemia, hgb ~ 12, previous CT scan no major findings. Review of Systems Review of Systems: All systems reviewed & are unremarkable except as noted in HPI and below PMFSH Past Medical History Medical History (Updated 06/16/24 @ 12:02 by Black Martinez MD) Anemia GERD (gastroesophageal reflux disease) HTN (hypertension) Sciatica Surgical History Surgical History No history of previous surgery Social History Social History (Updated 06/16/24 @ 11:19 by Duarte Joyce DO) Years smoked: 3 Smoking status: Current some day smoker Tobacco type: cigars Alcohol intake: current Drinks per week: 12 Alcohol use details: 2 drink/day Substance use: never Substance use type: does not use Do You Feel Safe in your Home?: Yes Lack of Transportation: No Lack of Food: Never True Current Housing: I Have Housing Concerned About Future Housing: No Difficulty Paying Gas/Electric Bills: No Difficulty Paying for Meds: No Currently Unemployed: No Education: Decline to Answer Difficulty w/ Childcare or Family Care: Decline to Answer Living arrangements: with family Spiritual care concerns: No Meds Home Medications and Allergies Home Medications Medication Instructions Recorded Confirmed Type amlodipine 10 mg tablet 10 mg PO DAILY 08/09/22 06/16/24 History omeprazole 20 mg capsule,delayed 20 mg PO DAILY 08/09/22 06/16/24 History release pregabalin 75 mg capsule 75 mg PO Q12H 08/09/22 06/16/24 History escitalopram oxalate 10 mg tablet 10 mg PO DAILY 04/03/24 06/16/24 History magnesium oxide 200 mg PO DAILY #30 tabs 04/07/24 06/16/24 Rx irbesartan 150 mg tablet 150 mg PO DAILY 05/07/24 06/16/24 History diphenhydramine 25 1 tablet PO QHS PRN Insomnia 05/15/24 06/16/24 History mg-acetaminophen 500 mg tablet (Tylenol PM Extra Strength) mecobalamin (vitamin B12) 1,000 1,000 mcg PO DAILY 05/15/24 06/16/24 History mcg chewable tablet (B12 Active) Allergies Allergy/AdvReac Type Severity Reaction Status Date / Time No Known Allergies Allergy Verified 06/16/24 11:01 Vital Signs Vital Signs - 24 hr 06/16/24 11:02 Temperature 97.1 F L Pulse Rate 123 H Respiratory Rate 20 Blood Pressure 148/93 H Pulse Oximetry 99 Oxygen Delivery Room Air Exam Const: General: comfortable and no acute distress HENMT: Face/Nose/Sinus: Normal nares present Eyes: General: appearance normal, both eyes and all related structures Neck: Neck: no JVD Resp: Auscultation: clear to auscultation bilaterally Cardio: Rate: regular rate Rhythm: regular rhythm GI: Inspection: non-distended GI Palp: Yes Soft to palpation Skin: General skin exam: normal color Neuro: General: gait normal Speech: normal speech Extrem: General: normal to inspection Psych: Mental Status: mental status grossly normal Assessment and Plan Assessment and plan (1) Anemia: Code(s): D64.9 - Anemia, unspecified Status: Acute Assessment and Plan: egd and colonoscopy to assess if gi source
--- NOTE | 2024-06-16 12:13 | SUR.OPER ---
EGD [id number]. Colonoscopy start time 1213.
[2024-06-16 12:28] VITALS: BP 102/60; PULSE 100; RESP 25; O2SAT 99
--- NOTE | 2024-06-16 12:31 | SUR.OPER ---
One descending polyp unretrieved - Dr. Coello notified and aware. Rectal polyp also unretrievable - Dr. Coello notified and aware.
[2024-06-16 12:38] VITALS: BP 115/72; PULSE 90; RESP 14; O2SAT 100
[2024-06-16 12:48] VITALS: BP 149/85; PULSE 87; RESP 15; O2SAT 100
== END 2024-06-16 12:58 | disposition home or self-care (01) ==
PROVIDERS: PCP Emergency Medicine; Referring Provider Emergency Medicine; Visit Provider Internal Medicine Gastroenterology
PROC: 0DJ08ZZ Inspection of Upper Intestinal Tract, Via Natural or Artificial Opening Endoscopic (ICD-10-PCS; CPT 43235; principal; 2024-06-16 13:00)
DX: Z12.11 Encounter for screening for malignant neoplasm of colon (principal); D12.4 Benign neoplasm of descending colon; D12.5 Benign neoplasm of sigmoid colon; D12.3 Benign neoplasm of transverse colon; K64.8 Other hemorrhoids; K57.30 Diverticulosis of large intestine without perforation or abscess without bleeding; K29.70 Gastritis, unspecified, without bleeding; D64.9 Anemia, unspecified; I10 Essential (primary) hypertension; K21.9 Gastro-esophageal reflux disease without esophagitis; F17.210 Nicotine dependence, cigarettes, uncomplicated
CPT/HCPCS: 43239; 45380; 45385; 36415; 80061; 88305; J2704; J7120

== ENCOUNTER 2024-06-16 13:17 | Outpatient (CLI) | payer MEDICARE, MEDICAID, SELFPAY ==
[2024-06-16 13:59] LABS: Cholesterol 196 mg/dL (0-200); HDL Direct 48 mg/dL; Triglycerides 350 mg/dL (<150)
[2024-06-16 14:17] LABS: LDL Cholesterol Direct 91 mg/dL
== END 2024-06-16 13:18 | disposition home or self-care (01) ==
LOC: ANHLAB 13:21
PROVIDERS: PCP Emergency Medicine; Visit Provider Internal Medicine Cardiovascular Disease
DX: I10 Essential (primary) hypertension (principal)
CPT/HCPCS: 36415; 80061

== ENCOUNTER 2024-07-07 14:08 | Outpatient (CLI) | payer MEDICARE, MEDICAID, SELFPAY ==
--- NOTE | ~2024-07-07 | XR_ITS ---
Clinical Indication: Pneumonia PA and lateral views of the chest: Comparison: 04/03/2024 Findings: The lungs are clear, without evidence of focal consolidation or pleural effusion. Cardiome diastinal silhouette is within normal limits. Bones and soft tissues are unremarkable. Impression: Normal chest. Reviewed, dictated and finalized at location . Impression: Normal chest.
[2024-07-07 15:36] LABS: Albumin Level 4.7 g/dL (3.5-5.1); Anion Gap 6 mmol/L (4-12); Blood Urea Nitrogen 21 mg/dL (9-20); Calcium 9.5 mg/dL (8.4-10.2); Carbon Dioxide 31 mmol/L (22-30); Chloride 106 mmol/L (98-107); Estimated Glomerular Filt Rate 49; Glucose 106 mg/dL (65-110); Phosphorus 3.1 mg/dL (2.5-4.5); Potassium 4.2 mmol/L (3.4-5.0); Sodium 143 mmol/L (137-145)
== END 2024-07-07 14:09 | disposition home or self-care (01) ==
PROVIDERS: PCP Internal Medicine Nephrology; Visit Provider Internal Medicine Nephrology
DX: J18.9 Pneumonia, unspecified organism (principal); N17.9 Acute kidney failure, unspecified; N18.32 Chronic kidney disease, stage 3b; I12.9 Hypertensive chronic kidney disease with stage 1 through stage 4 chronic kidney disease, or unspecified chronic kidney disease
CPT/HCPCS: 36415; 71046; 80069